=== PATIENT | female | born 1950 | race Caucasian/White ===

== ENCOUNTER 2021-04-16 06:01 | Day surgery (SDC) | payer OTHER, SELFPAY ==
[~2021-04-16] VITALS: Ht 157.5 cm; Wt 70.3 kg
[2021-04-16] MEDS ORDERED: ONDANSETRON HCL 4 MG/2 ML VIAL IVP PRN ×2 (10:30→10:45)
[2021-04-16] MEDS ORDERED: HYDROmorphone 1 MG/ML INJ. CARTRIDGE IVP PRN ×2 (10:30→10:45)
[2021-04-16] MEDS ORDERED: HYDROmorphone 1 MG/ML INJ. CARTRIDGE ONE (10:39)
[2021-04-16] MEDS: HYDROmorphone 1 MG/ML INJ. CARTRIDGE IVP PRN ×2 (10:40→10:55)
[2021-04-16] MEDS ORDERED: traMADol HCL HCL 50 MG TABLET (ULTRAM) PO PRN (10:45)
[2021-04-16] MEDS ORDERED: NACL 0.9% 1,000 ML IV SCH (10:45)
[2021-04-16] MEDS ORDERED: ONDANSETRON HCL 4 MG/2 ML VIAL ONE (10:53)
[2021-04-16] MEDS ORDERED: METOCLOPRAMIDE HCL 10 MG/2 ML VIAL IVP ONE (13:45)
[2021-04-16] MEDS ORDERED: PROMETHAZINE INJ.Non-Formulary 25 MG/ML AMP IVP ONE (13:45)
[2021-04-16] MEDS ORDERED: METOCLOPRAMIDE HCL 10 MG/2 ML VIAL ONE (13:46)
[2021-04-16] MEDS ORDERED: traMADol HCL HCL 50 MG TABLET (ULTRAM) ONE (14:20)
[2021-04-16 16:39] VITALS: BP_SYST 128
== END 2021-04-16 16:00 | disposition home or self-care (01) ==
LOC: SDS 06:01 → SMU 06:01 → SDS 16:00
PROVIDERS: ATTEND Surgery
DX: K43.9 Ventral hernia without obstruction or gangrene (principal); I10 Essential (primary) hypertension; E03.9 Hypothyroidism, unspecified; Z79.899 Other long term (current) drug therapy; Z20.822 Contact with and (suspected) exposure to COVID-19
CPT/HCPCS: 49560; 49568; 88302; C1781; J1170; J2405; J2550; J2765; U0003